=== PATIENT | male | born 1965 | race Caucasian/White ===

== ENCOUNTER 2016-08-10 18:27 | Emergency (ER) | payer OTHER | END 2016-08-10 22:22 | disposition home or self-care (01) | LOC: ER 18:27 | DX: K40.90 Unilateral inguinal hernia, without obstruction or gangrene, not specified as recurrent (principal); F17.210 Nicotine dependence, cigarettes, uncomplicated ==

== ENCOUNTER → 2016-09-06 | Day surgery (SDC) | payer OTHER | END | disposition home or self-care (01) | LOC: SDCH 09:26 | DX: C18.9 Malignant neoplasm of colon, unspecified (principal); D12.0 Benign neoplasm of cecum; Z80.0 Family history of malignant neoplasm of digestive organs | CPT/HCPCS: J1610; J2704 ==

== ENCOUNTER → 2016-09-08 | Day surgery (SDC) | payer OTHER | END | disposition home or self-care (01) | LOC: SDC 11:53 | DX: K40.90 Unilateral inguinal hernia, without obstruction or gangrene, not specified as recurrent (principal); J43.9 Emphysema, unspecified; F17.210 Nicotine dependence, cigarettes, uncomplicated; Z86.010 Personal history of colon polyps; Z85.038 Personal history of other malignant neoplasm of large intestine; Z98.890 Other specified postprocedural states | CPT/HCPCS: C1781; J1885; J2704 ==